=== PATIENT | female | born 1970 | race Two or more races ===

== ENCOUNTER → 2016-11-28 | Outpatient (CLI) | payer OTHER ==
[2016-11-28 13:50] LABS: MEAN CORPUSCULAR HEMOGLOBIN 32.7 pg (27.0-33.0); MEAN CORPUSCULAR HGB CONC 33.7 g/dl (32.0-36.5); MEAN CORPUSCULAR VOLUME 96.9 fl (80.0-96.0); RED CELL DISTRIBUTION WIDTH 12.4 % (11.5-14.5); WHITE BLOOD COUNT 5.9 K/mm3 (4.0-10.0)
[2016-11-28 13:57] LABS: CONTROL LINE HCG INT CTR LINE PRESENT
[2016-11-28 14:23] LABS: ALBUMIN 3.9 GM/DL (3.2-5.2); ALBUMIN/GLOBULIN RATIO 1.26 (1.00-1.93); ALKALINE PHOSPHATASE 91 U/L (45-117); ALT/SGPT 25 U/L (12-78); ANION GAP 10 MEQ/L (8-16); AST/SGOT 15 U/L (15-37); BILIRUBIN,TOTAL 0.5 MG/DL (0.2-1.0); BLOOD UREA NITROGEN 13 MG/DL (7-18); CALCIUM LEVEL 9.1 MG/DL (8.5-10.1); CARBON DIOXIDE LEVEL 28 MEQ/L (21-32); CHLORIDE LEVEL 103 MEQ/L (98-107); CHOLESTEROL LEVEL 235 MG/DL (<200); CREATININE FOR GFR 0.79 MG/DL (0.55-1.02); GLOMERULAR FILTRATION RATE > 60.0 (>58); GLUCOSE, FASTING 96 MG/DL (70-105); POTASSIUM SERUM 4.4 MEQ/L (3.5-5.1); SODIUM LEVEL 141 MEQ/L (136-145); TRIGLYCERIDES LEVEL 104 MG/DL (<150)
[2016-12-01 00:07] LABS: ANTI-SACCHAROMYCES CEREV. IgA <20.0 Units (0.0-24.9); ANTI-SACCHAROMYCES CEREV. IgG <20.0 Units (0.0-24.9)
== END ==
LOC: M WUC 12:06
PROVIDERS: ATTEND Nurse Practitioner Adult Health
DX: Z00.00 Encounter for general adult medical examination without abnormal findings (principal); R19.7 Diarrhea, unspecified; N91.2 Amenorrhea, unspecified

== ENCOUNTER → 2016-12-24 | Outpatient (CLI) | payer OTHER ==
--- NOTE | 2016-12-24 08:50 | REPMRS ---
Patient History The patient states she has not had a clinical breast exam in over a year. Patient had first child at age 31. No known family history of cancer. Took hormonal contraceptives for 5 years. Digital Woman Screen Mammo: December 24, 2016 - Exam #: [id number] Bilateral CC and MLO view(s) were taken. Technologist: Mindy Woo, Technologist Prior study comparison: August 24, 2015, digital woman screen mammo performed at [facility] to [facility]. June 23, 2014, digital woman screen mammo performed at [facility]. April 29, 2013, digital woman screen mammo performed at [facility] to [facility]. FINDINGS: The breast tissue is heterogeneously dense. This may lower the sensitivity of mammography. There is a moderate amount of heterogeneously dense fibroglandular tissue which is fairly symmetric. There is no interval development of dominant mass, architectural distortion, or clustered microcalcification typical of malignancy. There has been no change in the appearance of the mammogram from the prior studies. ASSESSMENT: BI-RADS/ACR category 1 mammogram. Negative. Recommendation Routine screening mammogram of both breasts in 1 year (for women over age 40). This mammogram was interpreted with the aid of an FDA-approved computer-aided dectection system. Electronically Signed By: Mac Schroeder MD 12/24/16 0850
== END ==
LOC: M WHC 08:04
PROVIDERS: ATTEND Nurse Practitioner Adult Health
DX: Z12.31 Encounter for screening mammogram for malignant neoplasm of breast (principal)

== ENCOUNTER → 2016-12-24 | Outpatient (CLI) | payer OTHER ==
[2016-12-24 19:34] LABS: FREE T4 1.06 NG/DL (0.76-1.46)
== END ==
LOC: M WUC 14:57
PROVIDERS: ATTEND Nurse Practitioner Women's Health
DX: N91.2 Amenorrhea, unspecified (principal)

== ENCOUNTER → 2017-02-04 | Outpatient (CLI) | payer OTHER ==
[~2017-02-04] MED LIST: METHACHOLINE KIT (J7674) INH ONE
== END ==
LOC: M CARPUL 11:00
PROVIDERS: ATTEND Nurse Practitioner Adult Health
DX: R06.02 Shortness of breath (principal); Z72.0 Tobacco use

== ENCOUNTER → 2018-01-06 | Outpatient (CLI) | payer OTHER | LOC: M WHC 11:12 | DX: Z12.31 Encounter for screening mammogram for malignant neoplasm of breast (principal); Z78.0 Asymptomatic menopausal state; Z92.0 Personal history of contraception | CPT/HCPCS: 77067 ==

== ENCOUNTER → 2018-01-06 | Outpatient (CLI) | payer OTHER ==
[2018-01-06 17:38] LABS: ALBUMIN 3.9 GM/DL (3.2-5.2); ALBUMIN/GLOBULIN RATIO 1.34 (1.00-1.93); ALKALINE PHOSPHATASE 100 U/L (45-117); ALT/SGPT 23 U/L (12-78); ANION GAP 7 MEQ/L (8-16); AST/SGOT 16 U/L (7-37); BILIRUBIN,TOTAL 0.4 MG/DL (0.2-1.0); BLOOD UREA NITROGEN 16 MG/DL (7-18); CALCIUM LEVEL 8.7 MG/DL (8.5-10.1); CARBON DIOXIDE LEVEL 28 MEQ/L (21-32); CHLORIDE LEVEL 105 MEQ/L (98-107); CHOLESTEROL LEVEL 209 MG/DL (<200); CHOLESTEROL RISK RATIO 2.714 (<5); CREATININE FOR GFR 0.78 MG/DL (0.55-1.30); GLOMERULAR FILTRATION RATE > 60.0 (>58); GLUCOSE, FASTING 87 MG/DL (70-100); HDL CHOLESTEROL 77 MG/DL (>40); NON-HDL-C 132 MG/DL; POTASSIUM SERUM 4.4 MEQ/L (3.5-5.1); SODIUM LEVEL 140 MEQ/L (136-145); THYROID STIMULATING HORMONE 0.814 uIU/ML (0.358-3.740); TOTAL PROTEIN 6.8 GM/DL (6.4-8.2); TRIGLYCERIDES LEVEL 70 MG/DL (<150)
[2018-01-06 17:52] LABS: MEAN CORPUSCULAR HEMOGLOBIN 31.7 pg (27.0-33.0); MEAN CORPUSCULAR HGB CONC 32.6 g/dl (32.0-36.5); MEAN CORPUSCULAR VOLUME 97.3 fl (80.0-96.0); PLATELET COUNT, AUTOMATED 260 10^3/uL (150-450); RED BLOOD COUNT 4.42 10^6/uL (4.00-5.40); RED CELL DISTRIBUTION WIDTH 13.3 % (11.5-14.5)
== END ==
LOC: M WUC 13:35
DX: Z00.00 Encounter for general adult medical examination without abnormal findings (principal); F41.8 Other specified anxiety disorders; R06.02 Shortness of breath
CPT/HCPCS: 84443

== ENCOUNTER → 2018-03-06 | Outpatient (CLI) | payer OTHER | LOC: M CARPUL 09:19 | DX: R06.02 Shortness of breath (principal); Z72.0 Tobacco use | CPT/HCPCS: 94010 ==

== ENCOUNTER → 2018-03-24 | Outpatient (CLI) | payer OTHER ==
[~2018-03-24] MED LIST changes: +METHACHOLINE KIT (J7674) INH; -METHACHOLINE KIT (J7674) INH ONE
== END ==
LOC: M CARPUL 08:58
DX: R06.02 Shortness of breath (principal)
CPT/HCPCS: J7674

== ENCOUNTER → 2019-09-07 | Outpatient (CLI) | payer OTHER ==
[~2019-09-07] MED LIST changes: +E-Z-GAS II EFFERVESCENT PACKET (SODIUM BICARB./CITRIC ACID/SIMETHICONE) As Ordered ONE; +E-Z-HD 98% w/w 340GM SUSP BTL As Ordered ONE; +E-Z-PAQUE 96% w/w SUSP 176GM BTL As Ordered ONE; -METHACHOLINE KIT (J7674) INH
--- NOTE | 2019-09-08 15:08 | REP ---
Examination Requested: Esophagram Barium Swallow Reason For Exam/Comment: Dysphasia, gastroesophageal reflux disease Esophagram: The procedure was performed BRANDY Burgos, under the direct supervision of Dr. Bernal. The images were reviewed with Dr. Bernal. 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 The superior mediastinal structures are midline. The heart size is within normal limits. The lungs are clear. Liquid barium and gas producing granules were given in the erect position as well as liquid barium in the prone oblique position, in order to perform a double contrast esophagram examination. Oral and pharyngeal stages of the examination were unremarkable. Esophageal transport is efficient and there is no esophagitis, stricture, or mucosal ring noted. There is a small hiatal hernia noted. Gastroesophageal reflux was not visualized throughout the course of the exam. Impression: 1. Small hiatal hernia. 0.5 minutes of fluoroscopy time was utilized for this procedure. Some fluoroscopic images are performed with last image hold technology. These images require no additional radiation. Reviewed by BRANDY Bloom 09/07/2019 12:10 P Electronically Signed by Wilton Bernal MD 09/08/2019 03:00 P
== END ==
LOC: M RAD 07:25
PROVIDERS: ATTEND Physician Assistant Medical
DX: R13.10 Dysphagia, unspecified (principal); K21.9 Gastro-esophageal reflux disease without esophagitis; K44.0 Diaphragmatic hernia with obstruction, without gangrene

== ENCOUNTER 2019-11-06 11:12 | Day surgery (SDC) | payer OTHER ==
[~2019-11-06] VITALS: Ht 157.5 cm; Wt 76.2 kg
[~2019-11-06 11:12] MED LIST changes: -E-Z-GAS II EFFERVESCENT PACKET (SODIUM BICARB./CITRIC ACID/SIMETHICONE) As Ordered ONE; -E-Z-HD 98% w/w 340GM SUSP BTL As Ordered ONE; -E-Z-PAQUE 96% w/w SUSP 176GM BTL As Ordered ONE; +IBUP200C33 PO; +PANT20TA2 PO; +TUMS500C PO
[2019-11-06] MEDS ORDERED: NS 1,000 ML IV ONE (12:15)
[2019-11-06] MEDS ORDERED: LIDOCAINE 2% INJ 100 MG/5 ML SDV (FOR ANES.) As Ordered ONE (13:06)
[2019-11-06] MEDS ORDERED: fentaNYL 100 MCG/2 ML INJECTION (J3010) As Ordered ONE (13:06)
[2019-11-06] MEDS ORDERED: propofoL 500 MG/50 ML VIAL As Ordered ONE (13:06)
--- NOTE | 2019-11-06 14:17 | ROOR ---
Patient Name: Ekaterina Vega Procedure Date: 11/06/2019 1:03 PM Date of : 1970 Age: 49 Room: [facility] Gender: Female Note Status: Finalized Procedure: Upper GI endoscopy Indications: Dysphagia, Heartburn Providers: Dakota Moore MD Referring MD: Bernadette VARGHESE NP Requesting Provider: Medicines: Monitored Anesthesia Care Complications: No immediate complications. Procedure: Pre-Anesthesia Assessment: - Prior to the procedure, a History and Physical was performed, and patient medications and allergies were reviewed. The patient is competent. The risks and benefits of the procedure and the sedation options and risks were discussed with the patient. All questions were answered and informed consent was obtained. Patient identification and proposed procedure were verified by the physician, the nurse and the anesthesiologist in the procedure room. Mental Status Examination: alert and oriented. Airway Examination: normal oropharyngeal airway and neck mobility. Respiratory Examination: clear to auscultation. CV Examination: normal. Prophylactic Antibiotics: The patient does not require prophylactic antibiotics. Prior Anticoagulants: The patient has taken no previous anticoagulant or antiplatelet agents. ASA Grade Assessment: II - A patient with mild systemic disease. After reviewing the risks and benefits, the patient was deemed in satisfactory condition to undergo the procedure. The anesthesia plan was to use monitored anesthesia care (MAC). Immediately prior to administration of medications, the patient was re-assessed for adequacy to receive sedatives. The heart rate, respiratory rate, oxygen saturations, blood pressure, adequacy of pulmonary ventilation, and response to care were monitored throughout the procedure. The physical status of the patient was re-assessed after the procedure. The Endoscope was introduced through the mouth, and advanced to the second part of duodenum. The upper GI endoscopy was accomplished without difficulty. The patient tolerated the procedure well. Findings: No endoscopic abnormality was evident in the esophagus to explain the patient's complaint of dysphagia. Biopsies were obtained from the proximal and distal esophagus with cold forceps for histology of suspected eosinophilic esophagitis. Verification of patient identification for the specimen was done by the physician and nurse using the patient's name, date and medical record number. Estimated blood loss was minimal. The Z-line was regular and was found 38 cm from the incisors. Scattered moderate inflammation characterized by erythema, friability and granularity was found in the gastric body and in the gastric antrum. Biopsies were taken with a cold forceps for Helicobacter pylori testing. The duodenal bulb and second portion of the duodenum were normal. Biopsies for histology were taken with a cold forceps for evaluation of celiac disease. Impression: - No endoscopic esophageal abnormality to explain patient's dysphagia. Biopsied. - Z-line regular, 38 cm from the incisors. - Gastritis. Biopsied. - Normal duodenal bulb and second portion of the duodenum. Biopsied. Recommendation: - Patient has a contact number available for emergencies. The signs and symptoms of potential delayed complications were discussed with the patient. Return to normal activities tomorrow. Written discharge instructions were provided to the patient. - High fiber diet. - Continue present medications. 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 - Follow an antireflux regimen. - Await pathology results. - Telephone GI clinic for pathology results in 2 weeks. - Return to primary care physician. Dakota Moore MD Dakota Moore MD 11/06/2019 2:16:42 PM Electronically signed by Dakota Moore MD Number of Addenda: 0 Note Initiated On: 11/06/2019 1:03 PM Estimated Blood Loss: Estimated blood loss was minimal.
[2019-11-06 14:20] VITALS: BP 131/77
--- NOTE | 2019-11-06 15:00 | ROOR ---
Patient Name: Ekaterina Vega Procedure Date: 11/06/2019 1:04 PM Date of : 1970 Age: 49 Room: [facility] Gender: Female Note Status: Finalized Procedure: Colonoscopy Indications: Change in bowel habits Providers: Dakota Moore MD Referring MD: Bernadette VARGHESE NP Requesting Provider: Medicines: Monitored Anesthesia Care Complications: No immediate complications. Procedure: Pre-Anesthesia Assessment: - Prior to the procedure, a History and Physical was performed, and patient medications and allergies were reviewed. The patient is competent. The risks and benefits of the procedure and the sedation options and risks were discussed with the patient. All questions were answered and informed consent was obtained. Patient identification and proposed procedure were verified by the physician, the nurse and the anesthesiologist in the procedure room. Mental Status Examination: alert and oriented. Airway Examination: normal oropharyngeal airway and neck mobility. Respiratory Examination: clear to auscultation. CV Examination: normal. Prophylactic Antibiotics: The patient does not require prophylactic antibiotics. Prior Anticoagulants: The patient has taken no previous anticoagulant or antiplatelet agents. ASA Grade Assessment: II - A patient with mild systemic disease. After reviewing the risks and benefits, the patient was deemed in satisfactory condition to undergo the procedure. The anesthesia plan was to use monitored anesthesia care (MAC). Immediately prior to administration of medications, the patient was re-assessed for adequacy to receive sedatives. The heart rate, respiratory rate, oxygen saturations, blood pressure, adequacy of pulmonary ventilation, and response to care were monitored throughout the procedure. The physical status of the patient was re-assessed after the procedure. The Colonoscope was introduced through the anus and advanced to the terminal ileum, with identification of the appendiceal orifice and IC valve. The colonoscopy was performed without difficulty. The patient tolerated the procedure well. The quality of the bowel preparation was good. The terminal ileum, ileocecal valve, appendiceal orifice, and rectum were photographed. Scope insertion time was 3 minutes. Scope withdrawal time was 9 minutes. The total duration of the procedure was 14 minutes. Findings: The perianal and digital rectal examinations were normal. The terminal ileum appeared normal. Ten sessile polyps were found in the recto-sigmoid colon, transverse colon and cecum. The polyps were 6 to 10 mm in size. These polyps were removed with a hot snare. Resection and retrieval were complete. Verification of patient identification for the specimen was done by the physician and nurse using the patient's name, date and medical record number. Estimated blood loss was minimal. Non-bleeding external and internal hemorrhoids were found during retroflexion. The hemorrhoids were medium-sized. Impression: - The examined portion of the ileum was normal. - Ten 6 to 10 mm polyps at the recto-sigmoid colon, in the transverse colon and in the cecum, removed with a hot snare. Resected and retrieved. - Non-bleeding external and internal hemorrhoids. Recommendation: - Patient has a contact number available for emergencies. The signs and symptoms of potential delayed complications were discussed with the patient. Return to normal activities tomorrow. Written discharge instructions were provided to the patient. - High fiber diet. - Continue present medications. - Colace capsule(s) orally 100 mg BID for 8 weeks. - Senokot-S 2 tablets PO q HS for 8 weeks. - Await pathology results. - Repeat colonoscopy in 1 year for surveillance of multiple polyps. - Telephone GI clinic for pathology results in 2 weeks. - Return to primary care physician. Dakota Moore MD Dakota Moore MD 11/06/2019 2:59:35 PM Electronically signed by Dakota Moore MD Number of Addenda: 0 Note Initiated On: 11/06/2019 1:04 PM Estimated Blood Loss: Estimated blood loss was minimal.
== END 2019-11-06 14:52 | disposition home or self-care (01) ==
LOC: M OPP 11:12
PROVIDERS: ATTEND Internal Medicine Gastroenterology
DX: K64.8 Other hemorrhoids (principal); D12.7 Benign neoplasm of rectosigmoid junction; D12.3 Benign neoplasm of transverse colon; D12.0 Benign neoplasm of cecum; K63.5 Polyp of colon; R19.4 Change in bowel habit; R13.10 Dysphagia, unspecified; K29.70 Gastritis, unspecified, without bleeding; R12 Heartburn; Z79.899 Other long term (current) drug therapy; F17.210 Nicotine dependence, cigarettes, uncomplicated
CPT/HCPCS: 43239; 45385; 88305; J3010

== ENCOUNTER → 2020-01-21 | Outpatient (CLI) | payer OTHER ==
--- NOTE | 2020-01-21 17:46 | REPPI ---
Chest x-ray: Two views. History: Chest pain. Findings: The lungs are symmetrically aerated and clear. Pleural angles are sharp. Heart size is normal. No significant bony abnormalities seen. No change from comparison study January 06, 2018. Impression: Negative chest x-ray. Electronically Signed by Deny Schroeder MD 01/21/2020 05:37 P
== END ==
LOC: M PLAIMG 15:30
PROVIDERS: ATTEND Physician Assistant Medical
DX: R07.89 Other chest pain (principal)

== ENCOUNTER → 2020-01-21 | Outpatient (REF) | payer OTHER ==
[2020-01-21 16:22] LABS: CK-MB VALUE MASS < 1.0 NG/ML (<3.6); CPK CREATINE PHOSPHOKINASE 112 U/L (26-192); MB/CK RELATIVE INDEX 0.89 (< OR =4); TROPONIN I < 0.02 NG/ML (< 0.10)
== END ==
LOC: M SFHCPLAZ 15:02
PROVIDERS: ATTEND Physician Assistant Medical
DX: R07.89 Other chest pain (principal)

== ENCOUNTER → 2020-02-08 | Outpatient (REF) | payer OTHER | LOC: M LAB REF 11:10 | PROVIDERS: ATTEND Physician Assistant Medical | DX: B96.81 Helicobacter pylori [H. pylori] as the cause of diseases classified elsewhere (principal) ==

== ENCOUNTER → 2020-03-30 | Outpatient (REF) | payer OTHER | LOC: M LAB REF 11:40 | PROVIDERS: ATTEND Physician Assistant Medical | DX: B96.81 Helicobacter pylori [H. pylori] as the cause of diseases classified elsewhere (principal) ==

== ENCOUNTER → 2020-04-13 | Outpatient (CLI) | payer OTHER ==
--- NOTE | 2020-04-13 12:31 | REPMRS ---
Patient History The patient states she has not had a clinical breast exam in over a year. No known family history of cancer. Took hormonal contraceptives for 5 years. Digital Woman Screen Mammo: April 13, 2020 - Exam #: [id number] Bilateral CC and MLO view(s) were taken. Technologist: Ani Ravi, Technologist Prior study comparison: March 24, 2019, bilateral digital woman screen mammo performed at [facility]. January 06, 2018, digital woman screen mammo performed at [facility]. December 24, 2016, digital woman screen mammo performed at [facility]. FINDINGS: There are scattered fibroglandular densities. The Volpara volumetric breast density category is:B. There has been no change in the appearance of the mammogram from the prior studies. There is a mild amount of scattered fibroglandular density which is fairly symmetric. There is no interval development of dominant mass, architectural distortion, or grouped microcalcification suggestive of malignancy. 3-D tomosynthesis shows no additional findings. Assessment: BI-RADS/ACR category 1 mammogram. Negative Mammogram. Recommendation Routine screening mammogram of both breasts in 1 year (for women over age 40). This patient's Lifetime Breast Cancer Risk is estimated at 12.2 %. This mammogram was interpreted with the aid of an FDA-approved computer-aided dectection system. Electronically Signed By: Mac Schroeder MD 04/13/20 4147
== END ==
LOC: M WHC 09:51
PROVIDERS: ATTEND Nurse Practitioner Adult Health
DX: Z12.31 Encounter for screening mammogram for malignant neoplasm of breast (principal)

== ENCOUNTER → 2020-11-09 | Outpatient (CLI) | payer OTHER ==
[~2020-11-09] MED LIST changes: -PANT20TA2 PO; +PANT20TA6 PO
== END ==
LOC: M LABSMTC 09:32
PROVIDERS: ATTEND Anesthesiology
DX: Z01.812 Encounter for preprocedural laboratory examination (principal); Z20.822 Contact with and (suspected) exposure to COVID-19

== ENCOUNTER 2020-11-14 07:08 | Day surgery (SDC) | payer OTHER ==
[~2020-11-14] VITALS: Ht 160 cm; Wt 77.1 kg
[~2020-11-14 07:08] MED LIST changes: +NS 1,000 ML IV ONE
--- OUTSIDE RECORDS SUMMARY | 2020-11-14 07:13 | CCD ---
Author Author [facility] Organization [facility] Address Unknown Phone Unavailable Care Team Providers Care Parts Clerk Plant Maintenance Name Role Phone Alfredito RAMACHANDRAN PA Unavailable Unavailable MADIE, Alfredito DONOVAN PA Unavailable Unavailable MADIE, Alfredito DONOVAN PA Unavailable Unavailable MADIE, Alfredito DONOVAN PA Unavailable Unavailable MADIE, Alfredito DONOVAN PA Unavailable Unavailable MADIE, Alfredito DONOVAN PA Unavailable Unavailable MADIE, Alfredito DONOVAN PA Unavailable Unavailable MADIE, Alfredito DONOVAN PA Unavailable Unavailable MADIE, Alfredito DONOVAN PA Unavailable Unavailable MADIE, Alfredito DONOVAN PA Unavailable Unavailable MADIE, Alfredito DONOVAN PA Unavailable Unavailable MADIE, Alfredito DONOVAN PA Unavailable Unavailable MADIE, Alfredito DONOVAN PA Unavailable Unavailable MADIE, Alfredito DONOVAN PA Unavailable Unavailable MADIE, Alfredito DONOVAN PA Unavailable Unavailable MADIE, Alfredito DONOVAN PA Unavailable Unavailable MADIE, Alfredito DONOVAN PA Unavailable Unavailable MADIE, Alfredito DONOVAN PA Unavailable Unavailable MADIE, Alfredito DONOVAN PA Unavailable Unavailable Servage, L Bernadette COMMUNITY CHEST OFFICER Unavailable Unavailable Servage, L Bernadette COMMUNITY CHEST OFFICER Unavailable Unavailable Servage, L Bernadette COMMUNITY CHEST OFFICER Unavailable Unavailable Servage, L Bernadette COMMUNITY CHEST OFFICER Unavailable Unavailable Servage, L Bernadette COMMUNITY CHEST OFFICER Unavailable Unavailable Servage, L Bernadette COMMUNITY CHEST OFFICER Unavailable Unavailable Servage, L Bernadette COMMUNITY CHEST OFFICER Unavailable Unavailable Servage, L Bernadette COMMUNITY CHEST OFFICER Unavailable Unavailable Servage, L Bernadette COMMUNITY CHEST OFFICER Unavailable Unavailable Servage, L Bernadette COMMUNITY CHEST OFFICER Unavailable Unavailable Servage, L Bernadette COMMUNITY CHEST OFFICER Unavailable Unavailable Servage, L Bernadette COMMUNITY CHEST OFFICER Unavailable Unavailable Servage, L Bernadette COMMUNITY CHEST OFFICER Unavailable Unavailable Servage, L Bernadette COMMUNITY CHEST OFFICER Unavailable Unavailable Servage, L Bernadette COMMUNITY CHEST OFFICER Unavailable Unavailable Servage, L Bernadette COMMUNITY CHEST OFFICER Unavailable Unavailable Servage, L Bernadette COMMUNITY CHEST OFFICER Unavailable Unavailable Servage, L Bernadette COMMUNITY CHEST OFFICER Unavailable Unavailable Servage, L Bernadette COMMUNITY CHEST OFFICER Unavailable Unavailable Servage, L Bernadette COMMUNITY CHEST OFFICER Unavailable Unavailable Servage, L Bernadette COMMUNITY CHEST OFFICER Unavailable Unavailable Servage, L Bernadette COMMUNITY CHEST OFFICER Unavailable Unavailable Servage, L Bernadette COMMUNITY CHEST OFFICER Unavailable Unavailable Servage, L Bernadette COMMUNITY CHEST OFFICER Unavailable Unavailable Servage, L Bernadette COMMUNITY CHEST OFFICER Unavailable Unavailable Servage, L Bernadette COMMUNITY CHEST OFFICER Unavailable Unavailable Servage, L Bernadette COMMUNITY CHEST OFFICER Unavailable Unavailable Servage, L Bernadette COMMUNITY CHEST OFFICER Unavailable Unavailable Servage, L Bernadette COMMUNITY CHEST OFFICER Unavailable Unavailable Servage, L Bernadette COMMUNITY CHEST OFFICER Unavailable Unavailable Servage, L Bernadette COMMUNITY CHEST OFFICER Unavailable Unavailable Servage, L Bernadette COMMUNITY CHEST OFFICER Unavailable Unavailable Servage, L Bernadette COMMUNITY CHEST OFFICER Unavailable Unavailable Servage, L Bernadette COMMUNITY CHEST OFFICER Unavailable Unavailable Servage, L Bernadette COMMUNITY CHEST OFFICER Unavailable Unavailable Servage, L Bernadette COMMUNITY CHEST OFFICER Unavailable Unavailable Servage, L Bernadette COMMUNITY CHEST OFFICER Unavailable Unavailable Servage, L Bernadette COMMUNITY CHEST OFFICER Unavailable Unavailable Servage, L Bernadette COMMUNITY CHEST OFFICER Unavailable Unavailable Servage, L Bernadette COMMUNITY CHEST OFFICER Unavailable Unavailable Servage, L Bernadette COMMUNITY CHEST OFFICER Unavailable Unavailable Servage, L Bernadette COMMUNITY CHEST OFFICER Unavailable Unavailable Servage, L Bernadette COMMUNITY CHEST OFFICER Unavailable Unavailable Servage, L Bernadette COMMUNITY CHEST OFFICER Unavailable Unavailable Servage, L Bernadette COMMUNITY CHEST OFFICER Unavailable Unavailable Servage, L Bernadette COMMUNITY CHEST OFFICER Unavailable Unavailable Servage, L Bernadette COMMUNITY CHEST OFFICER Unavailable Unavailable Servage, L Bernadette COMMUNITY CHEST OFFICER Unavailable Unavailable Servage, L Bernadette COMMUNITY CHEST OFFICER Unavailable Unavailable Servage, L Bernadette COMMUNITY CHEST OFFICER Unavailable Unavailable Servage, L Bernadette COMMUNITY CHEST OFFICER Unavailable Unavailable Servage, L Bernadette COMMUNITY CHEST OFFICER Unavailable Unavailable Servage, L Bernadette COMMUNITY CHEST OFFICER Unavailable Unavailable Servage, L Bernadette COMMUNITY CHEST OFFICER Unavailable Unavailable Servage, L Bernadette COMMUNITY CHEST OFFICER Unavailable Unavailable Servage, L Bernadette COMMUNITY CHEST OFFICER Unavailable Unavailable Charlebois, A Serenity RPA C Unavailable Unavailable Charlebois, A Serenity RPA C Unavailable Unavailable Charlebois, A Serenity RPA C Unavailable Unavailable Charlebois, A Serenity RPA C Unavailable Unavailable Charlebois, A Serenity RPA C Unavailable Unavailable Charlebois, A Serenity RPA C Unavailable Unavailable Charlebois, A Serenity RPA C Unavailable Unavailable Charlebois, A Serenity RPA C Unavailable Unavailable Charlebois, A Serenity RPA C Unavailable Unavailable Charlebois, A Serenity RPA C Unavailable Unavailable Charlebois, A Serenity RPA C Unavailable Unavailable Charlebois, A Serenity RPA C Unavailable Unavailable Charlebois, A Serenity RPA C Unavailable Unavailable Charlebois, A Serenity RPA C Unavailable Unavailable Charlebois, A Serenity RPA C Unavailable Unavailable Charlebois, A Serenity RPA C Unavailable Unavailable Charlebois, A Serenity RPA C Unavailable Unavailable Charlebois, A Serenity RPA C Unavailable Unavailable Charlebois, A Serenity RPA C Unavailable Unavailable Charlebois, A Serenity RPA C Unavailable Unavailable Charlebois, A Serenity RPA C Unavailable Unavailable Charlebois, A Serenity RPA C Unavailable Unavailable Charlebois, A Serenity RPA C Unavailable Unavailable Charlebois, A Serenity RPA C Unavailable Unavailable Charlebois, A Serenity RPA C Unavailable Unavailable Charlebois, A Serenity RPA C Unavailable Unavailable Charlebois, A Serenity RPA C Unavailable Unavailable Charlebois, A Serenity RPA C Unavailable Unavailable Charlebois, A Serenity RPA C Unavailable Unavailable Charlebois, A Serenity RPA C Unavailable Unavailable Charlebois, A Serenity RPA C Unavailable Unavailable Re-disclosure Warning The records that you are about to access may contain information from federally-assisted alcohol or drug abuse programs. If such information is present, then the following federally mandated warning applies: This information has been disclosed to you from records protected by federal confidentiality rules (42 CFR part 2). The federal rules prohibit you from making any further disclosure of this information unless further disclosure is expressly permitted by the written consent of the person to whom it pertains or as otherwise permitted by 42 CFR part 2. A general authorization for the release of medical or other information is NOT sufficient for this purpose. The Federal rules restrict any use of the information to criminally investigate or prosecute any alcohol or drug abuse patient.The records that you are about to access may contain highly sensitive health information, the redisclosure of which is protected by Article 27-F of the [place] State Public Health law. If you continue you may have access to information: Regarding HIV / AIDS; Provided by facilities licensed or operated by the [facility] Office of Mental Health; or Provided by the [facility] Office for People With Developmental Disabilities. If such information is present, then the following [facility] mandated warning applies: This information has been disclosed to you from confidential records which are protected by state law. State law prohibits you from making any further disclosure of this information without the specific written consent of the person to whom it pertains, or as otherwise permitted by law. Any unauthorized further disclosure in violation of state law may result in a fine or fpc sentence or both. A general authorization for the release of medical or other information is NOT sufficient authorization for further disc losure. Family History Family Member Name Family Member Gender Family Member Status Date o f Status Description Data Source(s) Unknown Male Problem [facility] ([facility]) Unknown Unknown Problem [facility] ([facility]) father Unknown Male Problem MEDENT ([facility]) Encounters Encounter Providers Location Date Indications Data Source(s ) Outpatient Attender: Bernadette Wray COMMUNITY CHEST OFFICER 03/21/2020 04:02:00 PM EDT [facility] [address] [place] [address] Y [address] 03/16/2020 12:00:00 AM EDT eCW1 ([facility]) [address] [address] 02/22/2020 12:00:00 AM EDT eCW1 ([facility]) [address] [address] 02/19/2020 12:00:00 AM EDT eCW1 ([facility]) Outpatient 02/02/2020 05:24:00 AM EDT [facility] [address] [place] [address] 01/21/2020 12:00:00 AM EDT eCW1 ([facility]) [address] [place] [address] 01/21/2020 12:00:00 AM EDT eCW1 ([facility]) [address] [place] [address] 01/20/2020 12:00:00 AM EDT eCW1 ([facility]) Outpatient Attender: Serenity Odom/Helen/Patricia worrell/Delaney 12/28/2019 09:30:00 AM EDT MEDENT ([facility] Angel [facility]rientos, ) Emergency Attender: ZION Marcer: Amilcar Wray NP EMERGENCY ROOM-ER 05/23/2017 05:27:00 AM EDT - 05/09/2017 08:24:00 PM EDT [facility] Medications Medication Brand Name Start Date Product Form Dose Route Admi nistrative Instructions Pharmacy Instructions Status Indications Reaction Description Data Source(s) 500 mg 11/02/2020 12:00:00 AM EST capsule 21 TAKE ONE CAPSULE BY MOUTH EVERY 8 HOURS UNTIL GONE TAKE ONE CAPSULE BY MOUTH EVERY 8 HOURS UNTIL GONE [facility] 5-325 mg 10/26/2020 12:00:00 AM EST tablet 12 TAKE ONE TABLET BY MOUTH EVERY 6 HOURS NEEDED PAIN MAXIMUM DAILY DOSE = 4 TAKE ONE TABLET BY MOUTH EVERY 6 HOURS NEEDED PAIN MAXIMUM DAILY DOSE = 4 SOLD: 10/26/2020 [facility] 236-22.74-6.74 -5.86 gram 10/06/2020 12:00:00 AM EST recon s oln 4000 TAKE PER DOCTORS INSTRUCTIONS FOR BOWEL PREP TAKE PER DOCTORS INSTRUCTIONS FOR BOWEL PREP SOLD: 10/11/2020 [facility] 0.12 % 10/05/2020 12:00:00 AM EST mouthwash 473 SWISH FOR 1 MINUTE WITH 1/2 OUNCE TWO TIMES A DAY , THEN EXPECTORATE, START 1 DAY BEFORE TREATMENT*CONTINUE USE FOR 1 WEEK SWISH FOR 1 MINUTE WITH 1/2 OUNCE TWO TI MES A DAY , THEN EXPECTORATE, START 1 DAY BEFORE TREATMENT*CONTINUE USE FOR 1 WEEK SOLD: 10/11/2020 [facility] 500 mg 10/05/2020 12:00:00 AM EST tablet 20 TAKE ONE TABLET BY MOUTH TWO TIMES A DAY WITH FOOD TAKE ONE TABLET BY MOUTH TWO TIMES A DAY WITH FOOD [facility] Clindamycin 150 MG Oral Capsule CLINDAMYCIN HCL 10/05/2020 12:00 :00 AM EST capsule 29 TAKE 2 CAPSULES BY M OUTH IMMEDIATELY, THEN 1 CAPSULE BY MOUTH EVERY 6 HOURS TAKE 2 CAPSULES BY MOUTH IMMEDIATELY, TH EN 1 CAPSULE BY MOUTH EVERY 6 HOURS SOLD: 10/11/2020 [facility] 500 mg 10/05/2020 12:00:00 AM EST capsule 22 TAKE 1 CAPSULE BY MOUTH THREE TIMES A DAY , TAKE 2 IMMEDIATELY START 2 DAYS PRIOR TO APPOINTMENT TAKE 1 CAPSULE BY MOUTH THREE TIMES A DAY , TAKE 2 IMMEDIATELY START 2 DAYS PRIOR TO APPOINTMENT SOLD: 10/11/2020 [facility] 500 mg 09/14/2020 12:00:00 AM EST capsule 21 TAKE ONE CAPSULE BY MOUTH THREE TIMES A DAY UNTIL FINISHED TAKE ONE CAPSULE BY MOUTH THREE TIMES A DAY UNTIL FINISHED SOLD: 09/15/2020 [facility] 800 mg 09/14/2020 12:00:00 AM EST tablet 21 TAKE ONE TABLET BY MOUTH THREE TIMES A DAY NEEDED FOR PAIN TAKE ONE TABLET BY MOUTH THREE TIMES A D AY NEEDED FOR PAIN SOLD: 09/15/2020 [facility] 20 mg 08/01/2020 12:00:00 AM EDT tablet,delayed release (DR/EC) 30 TAKE ONE TABLET BY MOUTH EVERY DAY TAKE ONE TABLET BY MOUTH EVERY DAY SOLD: 08/09/2020 [facility] Clindamycin 150 MG Oral Capsule CLINDAMYCIN HCL 06/16/2020 12:00 :00 AM EDT capsule 30 TAKE ONE CAPSULE BY MOUTH EVERY 8 HOURS UNTIL GONE TAKE ONE CAPSULE BY MOUTH EVERY 8 HOURS UNTIL GONE SOLD: 06/20/2020 [facility] pantoprazole 20 MG Delayed Release Oral Tablet Pantoprazole Sodium 04/01/2020 12:00:00 AM EDT ORAL active M EDENT ([facility], ) 500 mg 02/11/2020 12:00:00 AM EDT tablet 14 TAKE 1 TABLET BY MOUTH ONCE A DAY TAKE 1 TABLET BY MOUTH ONCE A DAY SOLD: 02/12/2020 [facility] Levofloxacin 500 MG Oral Tablet [Levaquin] Levaquin 02/10 12:00:00 AM EDT completed MEDENT ([facility], ) 500 mg 02/11/2020 12:00:00 AM EDT capsule 56 TAKE 2 CAPSULES BY MOUTH TWO TIMES A DAY TAKE 2 CAPSULES BY MOUTH TWO TIMES A DAY SOLD: 02/12/2020 [facility] Amoxicillin 500 MG Oral Tablet Amoxicillin 02/11/2020 12:00:00 AM EDT completed MEDENT ([facility], ) 20 mg 02/11/2020 12:00:00 AM EDT capsule,delayed release (DR/EC) 28 TAKE 1 CAPSULE BY MOUTH TWO TIMES A DAY FOR 14 DAYS (STOP PANTOPRAZOLE DURING THIS THERAPY) TAKE 1 CAPSULE BY MOUTH TWO TIMES A DAY FOR 14 DAYS (STOP PANTOPRAZOLE DURING THIS THERAPY) SOLD: 02/12/2020 [facility] bismuth subcitrate 140 MG / Metronidazol e 125 MG / tetracycline hydrochloride 125 MG Oral Capsule [Pylera] Pylera 02/10/2020 12:00:00 AM EDT ORAL completed MEDENT ([facility], ) Omeprazole 20 MG Delayed Release Oral Capsule Omeprazole 02/10/2020 12:00:00 AM EDT completed MEDENT ([facility], ) 20 mg 02/05/2020 12:00:00 AM EDT tablet,delayed release (DR/EC) 30 TAKE 1 TABLET BY MOUTH ONCE A DAY TAKE 1 TABLET BY MOUTH ONCE A DAY SOLD: 10/26/2020 [facility] pantoprazole 20 MG Delayed Release Oral Tablet PANTOPRAZOLE SODIUM 02/05/2020 12:00:00 AM EDT tablet,delayed release (DR/EC) 30 T BETI 1 TABLET BY MOUTH ONCE A DAY TAKE 1 TABLET BY MOUTH ONCE A DAY SOLD: 02/07/2020 [facility] 20 mg 02/05/2020 12:00:00 AM EDT tablet,delayed release (DR/EC) 30 TAKE 1 TABLET BY MOUTH ONCE A DAY TAKE 1 TABLET BY MOUTH ONCE A DAY SOLD: 07/01/2020 [facility] pantoprazole 20 MG Delayed Release Oral Tablet Pantoprazole Sodium 02/04/2020 12:00:00 AM EDT ORAL completed MEDENT ([facility], ) 160-4.5 mcg/actuation 01/22/2020 12:00:00 AM EDT HFA aerosol inhaler 10 INHALE TWO PUFFS BY MOUTH TWICE A DAY INHALE TWO PUFFS BY MOUTH TWICE A DAY SOLD: 01/25/2020 [facility] 10 mg 01/22/2020 12:00:00 AM EDT tablet 30 TAKE ONE TABLET BY MOUTH EVERY DAY TAKE ONE TABLET BY MOUTH EVERY DAY SOLD: 01/25/2020 [facility] 55 mcg 01/22/2020 12:00:00 AM EDT aerosol,spray 16 SPRAY ONE SPRAY IN EACH NOSTRIL ONCE DAILY SPRAY ONE SPRAY IN EACH NOSTRIL ONCE DAILY SOLD: 01/25/2020 [facility] Loratadine 10 MG Oral Tablet [Claritin] Claritin 10 MG Ana tin 10 MG 01/21/2020 12:00:00 AM EDT active 1 table t eCW1 ([facility]) Loratadine 10 MG Oral Tablet [Claritin] Claritin 10 MG Ana tin 10 MG 01/21/2020 12:00:00 AM EDT 1.0 {tablet} active C laritin 10 MG eCW1 ([facility]) 90 mcg/actuation 01/21/2020 12:00:00 AM EDT HFA aerosol inha ler 18 INHALE ONE PUFF BY MOUTH EVERY 6 HOURS NEEDED INHALE ONE PUFF BY MOUTH EVERY 6 HOURS NEEDED SOLD: 01/22/2020 [facility] pantoprazole 40 MG Delayed Release Oral Tablet Pantopr azole Sodium 40 MG Pantoprazole Sodium 40 MG 01/21/2020 12:00:00 AM EDT active 1 tablet eCW1 ([facility]) pantoprazole 40 MG Delayed Release Oral Tablet Pantopr azole Sodium 40 MG Pantoprazole Sodium 40 MG 01/21/2020 12:00:00 AM EDT 1.0 {tablet} active Pantoprazole Sodium 40 MG eCW1 ( [facility]) 200 ACTUAT Albuterol 0.09 MG/ACTUAT Mete red Dose Inhaler [Ventolin] Ventolin HFA 108 (90 Base) MCG/ACT Ventolin HFA 108 (90 Base) MCG/ACT 01/21/2020 12:00:00 AM EDT active 1 puff as needed eCW1 ([facility]) 200 ACTUAT Albuterol 0.09 MG/ACTUAT Mete red Dose Inhaler [Ventolin] Ventolin HFA 108 (90 Base) MCG/ACT Ventolin HFA 108 (90 Base) MCG/ACT 01/21/2020 12:00:00 AM EDT 1.0 {puff_as_needed} active Rian tolin HFA 108 (90 Base) MCG/ACT eCW1 ([facility]) Triamcinolone Acetonide 55 MCG/ACT Triamcinolone Acetonide 5 5 MCG/ACT 01/21/2020 12:00:00 AM EDT active 1 spray in each nostril eCW1 ([facility]) Triamcinolone Acetonide 55 MCG/ACT Triamcinolone Acetonide 5 5 MCG/ACT 01/21/2020 12:00:00 AM EDT 1.0 {spray_in_each_nostril} act bhupendra Triamcinolone Acetonide 55 MCG/ACT eCW1 ([facility]) 500 mg 12/28/2019 12:00:00 AM EDT capsule 56 TAKE 2 CAPSULES BY MOUTH TWO TIMES A DAY TAKE 2 CAPSULES BY MOUTH TWO TIMES A DAY SOLD: 12/28/2019 [facility] 20 mg 12/28/2019 12:00:00 AM EDT capsule,delayed release (DR/EC) 28 TAKE 1 CAPSULE BY MOUTH TWO TIMES A DAY TAKE 1 CAPSULE BY MOUTH TWO TIMES A DAY SOLD: 12/28/2019 [facility] Amoxicillin 500 MG Oral Tablet Amoxicillin 12/28/2019 12:00:00 AM EDT completed MEDENT ([facility], ) Clarithromycin 500 MG Oral Tablet Clarithromycin 12/28/2019 12:00:00 AM EDT completed MEDENT ([facility], ) 500 mg 12/28/2019 12:00:00 AM EDT tablet 28 TAKE 1 TABLET BY MOUTH TWO TIMES A DAY TAKE 1 TABLET BY MOUTH TWO TIMES A DAY SOLD: 12/28/2019 [facility] Omeprazole 20 MG Delayed Release Oral Capsule Omeprazole 12/28/2019 12:00:00 AM EDT ORAL completed MEDENT ([facility], ) Bisacodyl 5 MG Delayed Release Oral Tablet [Dulcolax] Dulcol ax 08/20/2019 12:00:00 AM EST ORAL completed MEDENT ([facility], ) pantoprazole 20 MG Delayed Release Oral Tablet PANTOPRAZOLE SODIUM 08/20/2019 12:00:00 AM EST tablet,delayed release (DR/EC) 60 T BETI ONE TABLET BY MOUTH TWICE A DAY TAKE ONE TABLET BY MOUTH TWICE A DAY SOLD: 12/14/2019 [facility] POLYETHYLENE GLYCOL 3350 59 MG/ML / Pota ssium Chloride 0.01 MEQ/ML / Sodium Bicarbonate 0.02 MEQ/ML / Sodium Chloride 0.025 MEQ/ML / sodium sulfate 0.04 MEQ/ML Oral Solution [Golytely] Golytely 08/20/2019 12:00:00 AM EST completed MEDTUCKER ([facility], ) Insurance Providers Payer name Policy type / Coverage type Policy ID Covered constitution party ID Covered constitution party's relationship to mary Policy Mary Plan Information [facility] MCDO [id number] SP [id number] [facility] COREY [id number] S [id number] [facility] [id number] SP [id number] [facility] COREY [id number] S [id number] [facility] O [id number] S [id number] [facility] [id number] SP [id number] [facility] [id number] SP [id number] [facility] Medicaid Commercial [id number] Self [id number] [facility] Medicaid Commercial [id number] Self [id number] ANSI-Not a Secondary Insurance [id number] ANSI-Not a Secondary Insurance [id number] ANSI-Not a Secondary Insurance [id number] ANSI-Not a Secondary Insurance [id number] ANSI-Not a Secondary Insurance [id number] ANSI-Not a Secondary Insurance [id number] ANSI-Not a Secondary Insurance [id number] MVP MCDO [id number] SP [id number] MVP Commercial [id number] Self [id number] [facility] [id number] MVP (pr) Commercial [id number] Self [id number] [employer] [facility] [id number] SP [id number] [facility] [id number] SP [id number] [facility] COMMUNITY PLAN [facility] [id number] SP [id number] SELF-PAY UNAVAILABLE S UNAVAILA BLE [place] [id number] [place] [id number] Problems, Conditions, and Diagnoses Code Display Name Description Problem Type Effective Dates Data Source(s) J30.2 Seasonal allergic rhinitis Seasonal gunnar rgic rhinitis, unspecified trigger Problem 01/21/2020 12:00:00 AM EDT eCW1 ([facility]) R07.89 [id number] Other chest pain Problem 01/21/2020 12:00:00 AM EDT eCW1 ([facility]) K21.9 [id number] Gastroesophageal ref lux disease, esophagitis presence not specified Problem 01/21/2020 12:00:00 AM EDT eCW1 ([facility]) J30.2 Seasonal allergic rhinitis Seasonal gunnar rgic rhinitis, unspecified trigger Problem 01/21/2020 12:00:00 AM EDT eCW1 ([facility]) R07.89 [id number] Other chest pain Problem 01/21/2020 12:00:00 AM EDT eCW1 ([facility]) K21.9 [id number] Gastroesophageal ref lux disease, esophagitis presence not specified Problem 01/21/2020 12:00:00 AM EDT eCW1 ([facility]) Z01.812 Encounter for preprocedural laboratory e xamination ENCOUNTER FOR PREPROCEDURAL LABORATORY EXAMINATION Diagnosis 03/21/2020 11:05:00 AM EDT [facility] Surgeries/Procedures Procedure Description Date Indications Data Source(s) Endoscopy Upper GI Biopsy 11/06/2019 12:00:00 AM EST [facility] Colonoscopy W/ Poly 11/06/2019 12:00:00 AM EST [facility], ) Results ID Date Data Source [id number] 11/09/2020 09:00:00 AM EST [facility] Name Value Range Interpretation Code Description Data Ana Paula rce(s) Supporting Document(s) SARS coronavirus 2 RNA Not Detected [facility] This lab was ordered by [facility] and reported by [facility]. ID Date Data Source [id number] 03/30/2020 07:15:00 AM EDT [facility] ([facility], ) Name Value Range Interpretation Code Description Data Ana Paula rce(s) Supporting Document(s) Helicobacter pylori Ag [Presence] in Stool Laboratory test resul t Normal (applies to non-numeric results) [facility] Performed at: [facility] [id number] Die Set Up Worker: Renuka Cruz MD, Phone: [phone] ID Date Data Source [id number] 03/23/2020 05:05:00 PM EDT [facility] Name Value Range Interpretation Code Description Data Ana Paula rce(s) Supporting Document(s) SARS-CoV-2, JAN Not Detected Not Detected [facility] This test was developed and its performa nce characteristics determinedby [facility]. This test has not been FDA cleared orapproved. This test has been authorized by FDA under an Emergency UseAuthorization (EUA). This test is only authorized for the duration oftime the declaration that circumstances exist justifying theauthorization of the emergency use of in vitro diagnostic tests fordetection of SARS-CoV-2 virus and/or diagnosis of COVID-19 infectionunder section 564(b)(1) of the Act, 21 U.S.C. 360bbb-3(b)(1), unlessthe authorization is terminated or revoked sooner.When diagnostic testing is negative, the possibility of a falsenegative result should be considered in the context of a patient'srecent exposures and the presence of clinical signs and symptomsconsistent with COVID-19. An individual without symptoms of COVID-19and who is not shedding SARS-CoV-2 virus would expect to have anegative (not detected) result in this assay. ID Date Data Source [id number] 03/21/2020 11:00:00 AM EDT [facility] Name Value Range Interpretation Code Description Data Ana Paula rce(s) Supporting Document(s) SARS CORONAVIRUS 2 RNA [facility] This lab was ordered by [facility] a nd reported by [facility]. ID Date Data Source [id number] 02/08/2020 07:45:00 AM EDT MEDENT ([facility], ) Name Value Range Interpretation Code Description Data Ana Paula rce(s) Supporting Document(s) Helicobacter pylori Ag [Presence] in Stool Laboratory test resul t Abnormal (applies to non-numeric results) MEDENT ([facility] ) Performed at: RN - [facility] [address] [id number] Die Set Up Worker: Renuka Cruz MD, Phone: [phone] ID Date Data Source CARDIAC MARKER PANEL 01/21/2020 12:00:00 AM EDT eCW1 ([facility]) Name Value Range Interpretation Code Description Data Ana Paula rce(s) Supporting Document(s) [id number] CPK CREATINE PHOSPHOKINASE eCW 1 ([facility]) < 0.02 < 0.10 TROPONIN I eCW1 ([facility]) 0.89 < OR =4 MB/CK RELATIVE INDEX eCW1 ([facility]) < 1.0 <3.6 CK-MB VALUE MASS eCW1 ([facility]) ID Date Data Source [id number] 11/06/2019 01:51:00 PM EST MEDENT ([facility], ) Name Value Range Interpretation Code Description Data Ana Paula rce(s) Supporting Document(s) Surgical pathology study Laboratory test result MEDENT ([facility], ) FINAL DIAGNOSIS A - Small bowel, biopsy: Small bowel mucosa with mildly increased chronic inflammation in the lamina propria. No significant inflammation in the surface epithelium is noted. B - Stomach, biopsy: Helicobacter pylori gastritis. C - Lower esophagus, biopsy: Squamous mucosa with no significant pathologic change. No gastric mucosa is noted. D - Upper esophagus, biopsy: Squamous mucosa with no significant pathologic change. No evidence of eosinophilic esophagitis. E - Colon polyps, polypectomy: Tubular adenoma. Multiple hyperplastic polyps. 11/10/2019 - 1121 CLINICAL DIAGNOSIS Heartburn, dysphagia, and change in bowel habits 11/09/2019 - 1102 GROSS DIAGNOSIS A - Received in formalin labeled "small bowel biopsy, R/O celiac" are three lopez fragments of mucosa measuring between 0.1 and 0.3 cm. All in one. B - Received in formalin labeled "gastric biopsy, R/O H. pylori" are three lopez fragments of mucosa measuring between 0.1 and 0.2 cm. All in one. C - Received in formalin labeled "lower esophageal biopsy, R/O eosinophilic esophagitis" is a 0.2 cm piece of lopez mucosa. All in one. D - Received in formalin labeled "upper esophageal biopsy, R/O eosinophilic esophagitis" is a 0.2 cm piece of lopez mucosa. All in one. E - Received in formalin labeled "colon polyps" are multiple pink polypoid tissue fragments measuring 1.5 x 0.7 x 0.4 cm in aggregate. All in one. -BP 11/09/2019 - 110 Signed EDGARD PADILLA MD 11/10/2019 1222 Procedure Social History Code Duration Value Status Description Data Source(s ) Smoking 01/21/2020 12:00:00 AM EDT Current Smoker completed Curre nt Smoker eCW1 ([facility]) Vital Signs ID Date Data Source UNK Name Value Range Interpretation Code Description Data Source(s) Body weight 74.390 kg 74.390 kg [facility] [place] body weight 115 [lb_av] 115 [lb_av] MEDEN T ([facility]) Body mass index (BMI) [Ratio] 29.0 kg/m2 29.0 k g/m2 [facility] ([facility]) Body weight 164.00 [lb_av] 164.00 [lb_av] MEDEN T ([facility]) Body height 63 [in_i] 63 [in_i] [facility] ([facility]) 5'3" Diastolic blood pressure 82 mm[Hg] 82 mm[Hg] MEDENT ([facility], ) Systolic blood pressure 128 mm[Hg] 128 mm[Hg] M EDENT ([facility], ) Diastolic blood pressure 78 mm[Hg] 78 mm[Hg] eCW1 ([facility]) Systolic blood pressure 126 mm[Hg] 126 mm[Hg] e CW1 ([facility]) Body temperature 96.5 [degF] 96.5 [degF] eCW1 ( [facility]) Respiratory rate 17 /min 17 /min eCW1 ([facility]) Heart rate 110 /min 110 /min eCW1 ([facility]) Body mass index (BMI) [Ratio] 26.04 kg/m2 26.04 kg/m2 eCW1 ([facility]) Body height [in_us] eCW1 ([facility]) Body weight Measured 147 [lb_av] 147 [lb_av] eC W1 ([facility]) Body weight 78.926 kg 78.926 kg [facility] [place] body weight 115 [lb_av] 115 [lb_av] MEDEN T ([facility], ) Body mass index (BMI) [Ratio] 30.8 kg/m2 30.8 k g/m2 [facility] Body weight 174.00 [lb_av] 174.00 [lb_av] MEDEN T ([facility], ) Body height 63 [in_i] 63 [in_i] [facility] 5'3" Diastolic blood pressure 84 mm[Hg] 84 mm[Hg] MED[facility] ([facility] ) Systolic blood pressure 122 mm[Hg] 122 mm[Hg] [facility] Patient Treatment Plan of Care Planned Activity Planned Date Details Description Data Source (s) 200 ACTUAT Albuterol 0.09 MG/ACTUAT Metered Dose Inhal er [Ventolin] 01/21/2020 12:00:00 AM EDT eCW1 ([facility]) Triamcinolone Acetonide 55 MCG/ACT 01/21/2020 12:00:00 AM EDT eCW1 ([facility]) pantoprazole 40 MG Delayed Release Oral Tablet 01/21/2020 12:00:00 AM EDT eCW1 ([facility]) Loratadine 10 MG Oral Tablet [Claritin] 01/21/2020 12:00:00 AM EDT eCW1 ([facility]) Loratadine 10 MG Oral Tablet [Claritin] 01/21/2020 12:00:00 AM EDT eCW1 ([facility]) 200 ACTUAT Albuterol 0.09 MG/ACTUAT Metered Dose Inhal er [Ventolin] 01/21/2020 12:00:00 AM EDT eCW1 ([facility]) pantoprazole 40 MG Delayed Release Oral Tablet 01/21/2020 12:00:00 AM EDT eCW1 ([facility]) Triamcinolone Acetonide 55 MCG/ACT 01/21/2020 12:00:00 AM EDT eCW1 ([facility])
[2020-11-14] MEDS ORDERED: TUMS500C PO (07:38)
[2020-11-14] MEDS ORDERED: fentaNYL 100 MCG/2 ML INJECTION (J3010) As Ordered ONE (08:10)
[2020-11-14] MEDS ORDERED: LIDOCAINE 2% 100MG/5ML SDV (FOR ANES.) As Ordered ONE (08:35)
[2020-11-14] MEDS ORDERED: propofoL 200 MG/20 ML VIAL As Ordered ONE (08:35)
--- NOTE | 2020-11-14 09:01 | ROOR ---
Patient Name: Ekaterina Vega Procedure Date: 11/14/2020 8:04 AM Date of : 1970 Age: 50 Room: [facility] Gender: Female Note Status: Finalized Procedure: Upper GI endoscopy Indications: Dyspepsia, Heartburn Providers: Dakota Moore MD Referring MD: Bernadette Wray NP Requesting Provider: Medicines: Monitored Anesthesia Care Complications: No immediate complications. Procedure: Pre-Anesthesia Assessment: - Prior to the procedure, a History and Physical was performed, and patient medications and allergies were reviewed. The patient is competent. The risks and benefits of the procedure and the sedation options and risks were discussed with the patient. All questions were answered and informed consent was obtained. Patient identification and proposed procedure were verified by the physician, the nurse and the anesthesiologist in the procedure room. Mental Status Examination: alert and oriented. Airway Examination: normal oropharyngeal airway and neck mobility. Respiratory Examination: clear to auscultation. CV Examination: normal. Prophylactic Antibiotics: The patient does not require prophylactic antibiotics. Prior Anticoagulants: The patient has taken no previous anticoagulant or antiplatelet agents. ASA Grade Assessment: II - A patient with mild systemic disease. After reviewing the risks and benefits, the patient was deemed in satisfactory condition to undergo the procedure. The anesthesia plan was to use monitored anesthesia care (MAC). Immediately prior to administration of medications, the patient was re-assessed for adequacy to receive sedatives. The heart rate, respiratory rate, oxygen saturations, blood pressure, adequacy of pulmonary ventilation, and response to care were monitored throughout the procedure. The physical status of the patient was re-assessed after the procedure. The Endoscope was introduced through the mouth, and advanced to the second part of duodenum. The upper GI endoscopy was accomplished without difficulty. The patient tolerated the procedure well. Findings: LA Grade A (one or more mucosal breaks less than 5 mm, not extending between tops of 2 mucosal folds) esophagitis with no bleeding was found 38 to 39 cm from the incisors. Biopsies were taken with a cold forceps for histology. Verification of patient identification for the specimen was done by the physician and nurse using the patient's name, date and medical record number. Estimated blood loss was minimal. Patchy moderate inflammation characterized by congestion (edema), erythema, granularity and linear erosions was found in the gastric body and in the gastric antrum. Biopsies were taken with a cold forceps for Helicobacter pylori testing. No gross lesions were noted in the duodenal bulb and in the second portion of the duodenum. Impression: - LA Grade A reflux esophagitis. Rule out Alexandra's esophagus. Biopsied. - Gastritis. Biopsied. - No gross lesions in the duodenal bulb and in the second portion of the duodenum. Recommendation: - Patient has a contact number available for emergencies. The signs and symptoms of potential delayed complications were discussed with the patient. Return to normal activities tomorrow. Written discharge instructions were provided to the patient. - Anti-acid reflux diet -- small meals, sit upright atleast 1 hour after meals, avoid fatty/ oily foods and avoid foods that cause reflux. - Continue present medications. - Await pathology results. - Use Protonix (pantoprazole) 20 mg PO twice daily - to be taken in morning (1/2 hour before breakfast) and at bedtime ( atleast 3 hours after last meal) for 3 months. - Follow an antireflux regimen. - Telephone GI clinic for pathology results in 2 weeks. - Return to primary care physician. Procedure Code(s): --- Professional --- 05450, Esophagogastroduodenoscopy, flexible, transoral; with biopsy, single or multiple Diagnosis Code(s): --- Professional --- K21.0, Gastro-esophageal reflux disease with esophagitis K29.70, Gastritis, unspecified, without bleeding R10.13, Epigastric pain R12, Heartburn CPT copyright 2019 [employer]. All rights reserved. The codes documented in this report are preliminary and upon thoracic medicine specialist review may be revised to meet current compliance requirements. Dakota Moore MD Dakota Moore MD 11/14/2020 9:00:32 AM Electronically signed by Dakota Moore MD Number of Addenda: 0 Note Initiated On: 11/14/2020 8:04 AM Estimated Blood Loss: Estimated blood loss: none.
--- NOTE | 2020-11-14 09:02 | ROOR ---
Patient Name: Ekaterina Vega Procedure Date: 11/14/2020 8:05 AM Date of : 1970 Age: 50 Room: [facility] Gender: Female Note Status: Finalized Procedure: Colonoscopy Indications: High risk colon cancer surveillance: Personal history of colonic polyps Providers: Dakota Moore MD Referring MD: Bernadette Wray NP Requesting Provider: Medicines: Monitored Anesthesia Care Complications: No immediate complications. Procedure: Pre-Anesthesia Assessment: - Prior to the procedure, a History and Physical was performed, and patient medications and allergies were reviewed. The patient is competent. The risks and benefits of the procedure and the sedation options and risks were discussed with the patient. All questions were answered and informed consent was obtained. Patient identification and proposed procedure were verified by the physician, the nurse and the anesthesiologist in the procedure room. Mental Status Examination: alert and oriented. Airway Examination: normal oropharyngeal airway and neck mobility. Respiratory Examination: clear to auscultation. CV Examination: normal. Prophylactic Antibiotics: The patient does not require prophylactic antibiotics. Prior Anticoagulants: The patient has taken no previous anticoagulant or antiplatelet agents. ASA Grade Assessment: II - A patient with mild systemic disease. After reviewing the risks and benefits, the patient was deemed in satisfactory condition to undergo the procedure. The anesthesia plan was to use monitored anesthesia care (MAC). Immediately prior to administration of medications, the patient was re-assessed for adequacy to receive sedatives. The heart rate, respiratory rate, oxygen saturations, blood pressure, adequacy of pulmonary ventilation, and response to care were monitored throughout the procedure. The physical status of the patient was re-assessed after the procedure. The Colonoscope was introduced through the anus and advanced to the terminal ileum, with identification of the appendiceal orifice and IC valve. The colonoscopy was performed without difficulty. The patient tolerated the procedure well. The quality of the bowel preparation was good. The terminal ileum, ileocecal valve, appendiceal orifice, and rectum were photographed. Scope insertion time was 2 minutes. Scope withdrawal time was 8 minutes. The total duration of the procedure was 10 minutes. Findings: The perianal and digital rectal examinations were normal. The terminal ileum appeared normal. Four sessile polyps were found in the recto-sigmoid colon and cecum. The polyps were 3 to 5 mm in size. These polyps were removed with a cold snare. Resection and retrieval were complete. Verification of patient identification for the specimen was done by the physician and nurse using the patient's name, date and medical record number. Estimated blood loss was minimal. Non-bleeding external and internal hemorrhoids were found during retroflexion. The hemorrhoids were medium-sized. Impression: - The examined portion of the ileum was normal. - Four 3 to 5 mm polyps at the recto-sigmoid colon and in the cecum, removed with a cold snare. Resected and retrieved. - Non-bleeding external and internal hemorrhoids. Recommendation: - Patient has a contact number available for emergencies. The signs and symptoms of potential delayed complications were discussed with the patient. Return to normal activities tomorrow. Written discharge instructions were provided to the patient. - High fiber diet. - Continue present medications. - Await pathology results. - Use original regular Metamucil one teaspoon PO daily. - Repeat colonoscopy in 5 years for surveillance based on pathology results. - Telephone GI clinic for pathology results in 2 weeks. - Return to primary care physician. Procedure Code(s): --- Professional --- 64255, Colonoscopy, flexible; with removal of tumor(s), polyp(s), or other lesion(s) by snare technique Diagnosis Code(s): --- Professional --- Z86.010, Personal history of colonic polyps K64.8, Other hemorrhoids K63.5, Polyp of colon CPT copyright 2019 [employer]. All rights reserved. The codes documented in this report are preliminary and upon dry cell and battery assembler review may be revised to meet current compliance requirements. Dakota Moore MD Dakota Moore MD 11/14/2020 9:02:28 AM Electronically signed by Dakota Moore MD Number of Addenda: 0 Note Initiated On: 11/14/2020 8:05 AM Estimated Blood Loss: Estimated blood loss was minimal.
[2020-11-14 09:10] VITALS: BP 134/76
== END 2020-11-14 09:39 | disposition home or self-care (01) ==
LOC: M OPP 07:08
PROVIDERS: ATTEND Internal Medicine Gastroenterology
DX: Z12.11 Encounter for screening for malignant neoplasm of colon (principal); Z86.010 Personal history of colon polyps; R10.13 Epigastric pain; K63.5 Polyp of colon; K64.8 Other hemorrhoids; D13.0 Benign neoplasm of esophagus; D13.1 Benign neoplasm of stomach; K21.00 Gastro-esophageal reflux disease with esophagitis, without bleeding; K29.70 Gastritis, unspecified, without bleeding; M19.90 Unspecified osteoarthritis, unspecified site; L40.9 Psoriasis, unspecified; F41.9 Anxiety disorder, unspecified; J45.909 Unspecified asthma, uncomplicated; F17.210 Nicotine dependence, cigarettes, uncomplicated; Z79.899 Other long term (current) drug therapy
CPT/HCPCS: 43239; 45385; 88305; 88342; J3010

== ENCOUNTER → 2021-09-25 | Outpatient (CLI) | payer OTHER ==
[~2021-09-25] MED LIST changes: -NS 1,000 ML IV ONE
== END ==
LOC: M WHC 09:46
PROVIDERS: ATTEND Nurse Practitioner Adult Health
DX: Z53.20 Procedure and treatment not carried out because of patient's decision for unspecified reasons (principal); Z12.31 Encounter for screening mammogram for malignant neoplasm of breast

== ENCOUNTER → 2021-11-20 | Outpatient (CLI) | payer OTHER ==
[2021-11-20 13:39] LABS: HEMATOCRIT 44.7 % (36.0-47.0); HEMOGLOBIN 14.7 g/dl (12.0-15.5); MEAN CORPUSCULAR HEMOGLOBIN 32.1 pg (27.0-33.0); MEAN CORPUSCULAR HGB CONC 32.9 g/dl (32.0-36.5); MEAN CORPUSCULAR VOLUME 97.6 fl (80.0-96.0); PLATELET COUNT, AUTOMATED 246 10^3/uL (150-450); RED BLOOD COUNT 4.58 10^6/uL (4.00-5.40); WHITE BLOOD COUNT 6.6 10^3/uL (4.0-10.0)
[2021-11-20 14:18] LABS: ALT/SGPT 25 U/L (12-78); BILIRUBIN,TOTAL 0.5 MG/DL (0.2-1.0); BLOOD UREA NITROGEN 13 MG/DL (7-18); CALCIUM LEVEL 9.6 MG/DL (8.5-10.1); CARBON DIOXIDE LEVEL 30 MEQ/L (21-32); CHLORIDE LEVEL 102 MEQ/L (98-107); CHOLESTEROL LEVEL 283 MG/DL (<200); CHOLESTEROL RISK RATIO 3.144 (<5); CREATININE FOR GFR 0.79 MG/DL (0.55-1.30); GLOMERULAR FILTRATION RATE > 60.0 (>51); GLUCOSE, FASTING 95 MG/DL (70-100); HDL CHOLESTEROL 90 MG/DL (>40); LDL CHOLESTEROL 176 MG/DL (<100); NON-HDL-C 193 MG/DL; POTASSIUM SERUM 4.5 MEQ/L (3.5-5.1); SODIUM LEVEL 139 MEQ/L (136-145); THYROID STIMULATING HORMONE 0.563 uIU/ML (0.358-3.740); TOTAL PROTEIN 7.3 GM/DL (6.4-8.2); TRIGLYCERIDES LEVEL 86 MG/DL (<150)
[2021-11-20 15:22] LABS: TOTAL 25(OH) VITAMIN D 30.5 NG/ML (30.0-100.0)
== END ==
LOC: M PLALAB 11:30
PROVIDERS: ATTEND Nurse Practitioner Adult Health
DX: Z00.00 Encounter for general adult medical examination without abnormal findings (principal); Z13.21 Encounter for screening for nutritional disorder; Z13.29 Encounter for screening for other suspected endocrine disorder

== ENCOUNTER → 2021-11-27 | Outpatient (CLI) | payer OTHER | LOC: M WHC 09:43 | PROVIDERS: ATTEND Nurse Practitioner Adult Health | DX: Z12.31 Encounter for screening mammogram for malignant neoplasm of breast (principal) ==

== ENCOUNTER → 2021-12-25 | Outpatient (REF) | payer OTHER | LOC: M SFHCPLAZ 09:50 | PROVIDERS: ATTEND Nurse Practitioner Adult Health | DX: J02.9 Acute pharyngitis, unspecified (principal) ==

== ENCOUNTER → 2021-12-27 | Outpatient (CLI) | payer OTHER | LOC: M RAD 11:26 | PROVIDERS: ATTEND Nurse Practitioner Adult Health | DX: Z12.2 Encounter for screening for malignant neoplasm of respiratory organs (principal) ==

== ENCOUNTER → 2023-01-14 | Outpatient (CLI) | payer OTHER | LOC: M WHC 13:26 | PROVIDERS: ATTEND Nurse Practitioner Adult Health | DX: Z12.31 Encounter for screening mammogram for malignant neoplasm of breast (principal) ==

== ENCOUNTER → 2023-03-25 | Outpatient (CLI) | payer OTHER | LOC: M SOG 09:00 | PROVIDERS: ATTEND Physician Assistant | DX: M79.644 Pain in right finger(s) (principal); M25.532 Pain in left wrist; M25.531 Pain in right wrist ==

== ENCOUNTER → 2023-03-27 | Outpatient (CLI) | payer OTHER | LOC: M WHC 10:36 | PROVIDERS: ATTEND Nurse Practitioner Adult Health | DX: Z78.0 Asymptomatic menopausal state (principal); M85.88 Other specified disorders of bone density and structure, other site; M85.851 Other specified disorders of bone density and structure, right thigh; M85.852 Other specified disorders of bone density and structure, left thigh ==

== ENCOUNTER → 2023-04-24 | Outpatient (REF) | payer OTHER | LOC: M SFHCWAGY 18:04 | PROVIDERS: ATTEND Nurse Practitioner Family | DX: Z12.4 Encounter for screening for malignant neoplasm of cervix (principal) ==

== ENCOUNTER → 2023-05-15 | Outpatient (CLI) | payer OTHER | LOC: M RAD 09:35 | PROVIDERS: ATTEND Nurse Practitioner Adult Health | DX: Z12.2 Encounter for screening for malignant neoplasm of respiratory organs (principal); Z87.891 Personal history of nicotine dependence ==

== ENCOUNTER → 2024-02-26 | Outpatient (CLI) | payer OTHER | LOC: M WHC 07:13 | PROVIDERS: ATTEND Nurse Practitioner Family | DX: Z12.31 Encounter for screening mammogram for malignant neoplasm of breast (principal) ==

== ENCOUNTER → 2024-07-22 | Outpatient (CLI) | payer OTHER | LOC: M RAD 07:48 | PROVIDERS: ATTEND Nurse Practitioner Adult Health | DX: Z12.2 Encounter for screening for malignant neoplasm of respiratory organs (principal); Z87.891 Personal history of nicotine dependence ==

== ENCOUNTER 2025-08-04 07:54 | Day surgery (SDC) | payer OTHER ==
[~2025-08-04] VITALS: Ht 160 cm; Wt 75.7 kg
[2025-08-04] MEDS ORDERED: LIDOCAINE 2% 100 MG/5 ML SDV (FOR ANES.) As Ordered ONE (09:09)
[2025-08-04 10:10] VITALS: TEMP 97.1
[2025-08-04 10:25] VITALS: BP 134/78; O2SAT 99
== END 2025-08-04 10:40 | disposition home or self-care (01) ==
LOC: M OPP 07:54
PROVIDERS: ATTEND Internal Medicine Gastroenterology
DX: K64.0 First degree hemorrhoids (principal); Z86.0100 Personal history of colon polyps, unspecified; K22.70 Barrett's esophagus without dysplasia; K22.89 Other specified disease of esophagus; K44.9 Diaphragmatic hernia without obstruction or gangrene; R12 Heartburn; Z79.899 Other long term (current) drug therapy; J45.909 Unspecified asthma, uncomplicated; F17.210 Nicotine dependence, cigarettes, uncomplicated